=== PATIENT | female | born 1985 | race Hispanic/Latino ===

== ENCOUNTER 2019-10-09 16:09 | Emergency (ER) | payer MEDICAID ==
[~2019-10-09 16:09] MED LIST: LORA1TAB3 PO
[2019-10-09] MEDS ORDERED: ACETAMINOPHEN 325 MG TAB ONE (17:01)
== END 2019-10-09 18:06 | disposition home or self-care (01) ==
LOC: EDH 16:09 → EEVIPCON 16:09 → EDH 18:06
DX: G89.29 Other chronic pain (principal); M79.604 Pain in right leg; F41.9 Anxiety disorder, unspecified; F31.9 Bipolar disorder, unspecified; Z76.0 Encounter for issue of repeat prescription; Z79.899 Other long term (current) drug therapy

== ENCOUNTER 2024-01-28 00:46 | Inpatient (IN) | payer MEDICAID, OTHER ==
[~2024-01-28] VITALS: Ht 167.6 cm; Wt 109.4 kg
[2024-01-28] MEDS: CLINDAMYCIN IVPB 600MG/50ML 50 ML IV SCH ×2 (01:53→04:00)
[2024-01-28] MEDS: KETOROLAC 30MG VIAL (30MG/ML) ONE (01:53)
[2024-01-28] MEDS: KETOROLAC 30MG VIAL (30MG/ML) IVP ONE (01:54)
[2024-01-28 02:02] LABS: BASOPHILS # (AUTO) 0.03 K/uL (0.00-0.20); BASOPHILS % (AUTO) 0.3 % (0.0-5.0); HEMATOCRIT 38.9 % (36-48); IMMATURE GRANULOCYTE ABSOLUTE 0.03 K/uL (0-1); LYMPHOCYTES # (AUTO) 2.5 K/uL (1.0-4.8); LYMPHOCYTES % (AUTO) 24.4 % (21.0-51.0); MEAN CORPUSCULAR HEMOGLOBIN 29.9 pg (27.0-33.0); MEAN CORPUSCULAR HGB CONC 33.2 g/dL (32.0-36.0); MONOCYTES # (AUTO) 0.7 K/uL (0.1-1.0); MONOCYTES % (AUTO) 7.2 % (3.0-13.0); NEUTROPHILS # (AUTO) 6.8 K/uL (1.8-7.7); NEUTROPHILS % (AUTO) 66.8 % (40.0-77.0); PLATELET COUNT (AUTO) 226 K/uL (130-400); RED BLOOD CELL COUNT(AUTO) 4.32 MIL/uL (4.00-5.50); WHITE BLOOD COUNT (AUTO) 10.1 K/uL (4.8-10.8)
[2024-01-28 02:20] LABS: CREATININE 0.8 mg/dL (0.5-1.0); INR <= 0.93 (0.85-1.15); PROTHROMBIN TIME 10.2 SEC (9.6-11.6)
[2024-01-28 02:22] LABS: PARTIAL THROMBOPLASTIN TIME 28.8 SEC (26.3-35.5)
[2024-01-28 02:25] LABS: ALBUMIN 3.7 g/dL (3.5-5.0); BILIRUBIN,TOTAL 0.3 mg/dL (0.2-1.0); TOTAL PROTEIN, SERUM 7.9 g/dL (6.0-8.3)
[2024-01-28] MEDS ORDERED: LACTULOSE 20 GM/30 ML UDCUP PO PRN (04:00)
[2024-01-28] MEDS ORDERED: MAG/ALUM/SIMETH 30 ML UDCUP PO PRN (04:00)
[2024-01-28] MEDS ORDERED: OXYCODONE/ACETAMIN 5/325MG TAB PO PRN (04:00)
[2024-01-28] MEDS ORDERED: MAGNESIUM 2GM PREMIX 50ML 50 ML IV PRN (04:00)
[2024-01-28] MEDS ORDERED: DiphenhydrAMINE HCL 50 MG/ML VIAL IV PRN (04:00)
[2024-01-28] MEDS ORDERED: ZOLPIDEM TARTRATE 5 MG TAB PO PRN (04:00)
[2024-01-28] MEDS ORDERED: ONDANSETRON 4MG INJ IV PRN (04:00)
[2024-01-28] MEDS ORDERED: NITROGLYCERIN 0.4 MG SL TAB SL PRN (04:00)
[2024-01-28] MEDS ORDERED: ACETAMINOPHEN 325 MG TAB PO PRN ×3 (04:00)
[2024-01-28] MEDS ORDERED: GUAIFENESIN-DM 200/20 MG 10 ML PO PRN (04:00)
[2024-01-28 06:56] LABS: BASOPHILS # (AUTO) 0.03 K/uL (0.00-0.20); BASOPHILS % (AUTO) 0.4 % (0.0-5.0); EOSINOPHILS # (AUTO) 0.09 K/uL (0.00-0.70); EOSINOPHILS % (AUTO) 1.2 % (0.0-8.0); HEMATOCRIT 38.2 % (36-48); IMMATURE GRANULOCYTE ABSOLUTE 0.02 K/uL (0-1); LYMPHOCYTES # (AUTO) 2.4 K/uL (1.0-4.8); LYMPHOCYTES % (AUTO) 31.9 % (21.0-51.0); MEAN CORPUSCULAR HEMOGLOBIN 30.1 pg (27.0-33.0); MEAN CORPUSCULAR HGB CONC 33.8 g/dL (32.0-36.0); MEAN CORPUSCULAR VOLUME 89.3 fL (79-99); MONOCYTES # (AUTO) 0.5 K/uL (0.1-1.0); MONOCYTES % (AUTO) 6.7 % (3.0-13.0); NEUTROPHILS # (AUTO) 4.4 K/uL (1.8-7.7); NEUTROPHILS % (AUTO) 59.5 % (40.0-77.0); PLATELET COUNT (AUTO) 197 K/uL (130-400); RED BLOOD CELL COUNT(AUTO) 4.28 MIL/uL (4.00-5.50); WHITE BLOOD COUNT (AUTO) 7.4 K/uL (4.8-10.8)
[2024-01-28 07:05] LABS: INR <= 0.93 (0.85-1.15); PROTHROMBIN TIME 10.7 SEC (9.6-11.6)
[2024-01-28 07:06] LABS: PARTIAL THROMBOPLASTIN TIME 29.7 SEC (26.3-35.5)
[2024-01-28 07:08] LABS: HEMOGLOBIN A1C 5.7 % (4.0-6.0)
[2024-01-28 07:19] LABS: B-TYPE NATRIURETIC PEPTIDE 53 pg/mL (0-100)
[2024-01-28 07:20] LABS: CREATININE 0.7 mg/dL (0.5-1.0); POTASSIUM 3.9 mmol/L (3.5-5.1)
[2024-01-28] MEDS: INSULIN HUMULIN R 100 UNIT/ML 3ML SQ SCH (07:30)
[2024-01-28 07:43] LABS: D-DIMER 611 ng/mL (0-500)
[2024-01-28] MEDS: FAMOTIDINE 20MG VIAL IV SCH (07:47)
[2024-01-28] MEDS: HYDRALAZINE 20MG/ML VIAL IV PRN (09:35)
[2024-01-28] MEDS: KETOROLAC 15MG/ML VIAL (15MG/ML) IV PRN (10:38)
[2024-01-28] MEDS ORDERED: VANCOMYCIN PROTOCOL PER PHARMACY IV SCH (11:30)
[2024-01-28] MEDS: VANCOMYCIN 2GM/500 ML BAG 500 ML IV ONE (13:07)
[2024-01-28 16:05] VITALS: BP 168/88; PULSE 77; RESP 16
[2024-01-28 17:00] VITALS: O2SAT 100
[2024-01-28] MEDS ORDERED: VANCOMYCIN 1G/250ML KIT 250 ML IV SCH (21:30)
== END 2024-01-28 20:03 | disposition left against medical advice (07) | DRG 603 ==
LOC: EDH 00:46 → OBSVTOIN 00:47 → EDHIP 00:47 → 3CH 15:37
PROVIDERS: ADMIT Hospitalist; ATTEND Hospitalist
DX: L03.211 Cellulitis of face (principal); L02.01 Cutaneous abscess of face; E66.01 Morbid (severe) obesity due to excess calories; F32.A Depression, unspecified; I10 Essential (primary) hypertension; Z53.29 Procedure and treatment not carried out because of patient's decision for other reasons; Z90.710 Acquired absence of both cervix and uterus; Z98.84 Bariatric surgery status; Z68.38 Body mass index [BMI] 38.0-38.9, adult
CPT/HCPCS: 36415; 70486; 71045; 80048; 80053; 82140; 82948; 83036; 83880; 84145; 85025; 85378; 85610; 85730; 87040; 96365; 96375; G0378; J0360; J1885; J3490; J3370